=== PATIENT | female | born 1990 | race Caucasian/White ===

== ENCOUNTER → 2016-10-31 | Day surgery (SDC) | payer OTHER ==
[~2016-10-31] MED LIST: ACETAMINOPHEN 1000 MG/100 ML VIAL IV ONE; ACETAMINOPHEN/HYDROcodone 325 MG/5 MG TAB ONE; ALPH1CAP3 OR; B-650TAB2 OR; BACITRACIN IM FOR SOLN 50,000 UNIT VIAL ONE; BUPIVACAINE/EPINEPHRINE 0.25% 50 ML VIAL ONE; GENTAMICIN SULFATE 80 MG/2 ML VIAL ONE; KETOROLAC TROMETHAMINE 30 MG/ML (IVP) VIAL ONE; LACTATED RINGER'S 1000 ML INJ 1,000 ML ONE; LIDOCAINE 1%/EPINEPHrine 1:100,000 SOLN 20 ML VIAL ONE; MEPERIDINE HCL 25 MG/ML VIAL ONE; MIDAZOLAM HCL 2 MG/2 ML VIAL ONE; ONDANSETRON HCL 4 MG/2 ML VIAL IV PUSH ONE; PRENCAP10 PO; PROPOFOL 200 MG/20 ML AMP IV ONE; SODIUM CHLORIDE 0.9% 20 ML VIAL ONE; ceFAZolin INJ 1,000 MG VIAL ONE
--- NOTE | 2016-10-31 10:14 | TN ---
cc: KEVAN SHIPMAN M.D. DATE OF SURGERY 10/31/2016 PREOPERATIVE DIAGNOSIS Atrophic breast atrophy and ptosis. POSTOPERATIVE DIAGNOSIS Atrophic breast atrophy and ptosis. PROCEDURE Augmentation mammoplasty SURGEON Kevan Shipman MD ANESTHESIA LMA general, a total of 60 cc of 1% lidocaine with epinephrine mixed with 0.25% Marcaine in a 2:1 ratio. IMPLANT DATA, PLACEMENT AND TECHNIQUE Mana Brar TRS 415 cc gels. The serial number of the right breast implant device [id number] and implant data of the left breast implant device [id number]. PROCEDURE She was properly consented and anesthetized where the NAC was set at 19 cm from sternal notch, 42 mm areolar diameter. Through an infra-areolar vertical incision, the retropectoral plane was encountered. It should be mentioned that although the plan was to place this implant in the subglandular plane, due to the now bimanual palpation, it was felt that the implant would be very thin and then due to the great position of the muscle, I took advantage and elevated that plane. Again, the implants were placed in the retropectoral plane. After assuring meticulous hemostasis, I proceeded and irrigated the pocket with triple antibiotic solution and isolation of the skin and the nipple-areolar from the beginning. I proceeded to introduce the implant utilizing a no-touch technique. With this, I proceeded and closed the wound with multiple 2-0 Monocryl sutures in the breast parenchyma, dermis and subcu. The contralateral side was approached in exactly the same manner. At this point, I sat up the patient and tailor tack technique was utilized to reassess the new position of envelope. After this was properly done, it was marked, the evangelist were removed, the skin was de-epithelialized and the wounds were closed in the following fashion. The vertical and inverted incision at the base was closed utilizing 2-0 Monocryl suture in the dermis and subcu. The NAC was brought into a near anatomic position utilizing 2-0 PTFE in a pinwheel type technique, as well as reinforced with 2-0 quill. The Prineo Dermabond was utilized for the skin. Absorbent dressings thereafter. Good viability of the NAC was noted at the end of the case. The patient was awakened and extubated in the operating room. She was transferred back to the postanesthesia care unit in stable condition. There were no complications appreciated. The patient tolerated the procedure fairly well. MD MEREDITH Leary/HOWARD /9:42 AM /10:03 AM YUSEF
== END | disposition home or self-care (01) ==
LOC: ESDC 06:22
PROVIDERS: ATTEND Plastic Surgery
DX: Z41.1 Encounter for cosmetic surgery (principal)
CPT/HCPCS: 00402; 19316; 19325; C1789; J0131; J0690; J1580; J1885; J2175; J2250; J2405; J3010; J7120